=== PATIENT | female | born 1985 | race Two or more races ===

== ENCOUNTER 2017-04-03 21:57 | Emergency (ER) | payer MEDICAID ==
[~2017-04-03] VITALS: Ht 154.9 cm; Wt 70.3 kg
--- NOTE | 2017-04-03 21:57 | NUR ---
BIBSELF C/O RIGHT EAR PAIN X 2 DAYS. A/OX4 VSS NAD. NO SOB OR PAIN NOTED. WILL CONTINUE TO MONITOR FOR ANY CHANGES
[2017-04-03 22:18] VITALS: BP 130/80
== END 2017-04-03 22:33 | disposition home or self-care (01) ==
LOC: ER 22:02
DX: H60.91 Unspecified otitis externa, right ear (principal); Z85.42 Personal history of malignant neoplasm of other parts of uterus; Z90.710 Acquired absence of both cervix and uterus
CPT/HCPCS: A4606; Z7610